=== PATIENT | male | born 1965 | race African-American/Black ===

== ENCOUNTER 2018-06-15 00:33 | Emergency (ER) | payer MEDICAID ==
[~2018-06-15] VITALS: Ht 162.6 cm; Wt 65.1 kg
[2018-06-15] MEDS ORDERED: chlorPROMAZINE 25 MG/ML, 2ML IM ONE (01:00)
[2018-06-15 02:05] VITALS: BP 122/67
== END 2018-06-15 02:06 | disposition home or self-care (01) ==
LOC: ED 01:55
DX: R10.13 Epigastric pain (principal); R06.6 Hiccough; R11.10 Vomiting, unspecified; F17.200 Nicotine dependence, unspecified, uncomplicated
CPT/HCPCS: 74022; 96372; 99283; J3230

== ENCOUNTER 2018-06-19 09:45 | Inpatient (IN) | payer MEDICAID ==
[~2018-06-19] VITALS: Ht 162.6 cm; Wt 65.4 kg
[2018-06-19] MEDS ORDERED: ACETAMINOPHEN 325 MG TABLET PO ONE (10:30)
[2018-06-19] MEDS ORDERED: chlorPROMAZINE 25 MG/ML, 1ML IM ONE (10:30)
[2018-06-19] MEDS ORDERED: SODIUM CHLORIDE FLUSH 10ML SYR IVF ONE (10:30)
[2018-06-19] MEDS ORDERED: CEFTRIAXONE 1,000 MG in SODIUM CHLORIDE 0.9% 50 ML IVPB ONE (10:30)
[2018-06-19] MEDS ORDERED: ACETAMINOPHEN 325 MG TABLET ONE (11:00)
[2018-06-19] MEDS ORDERED: CEFTRIAXONE PMX 1GM/50ML 50 ML ONE (11:00)
[2018-06-19 11:02] LABS: BASOPHILS # (AUTO) 0.02 x10^3/uL (0-0.1); BASOPHILS % (AUTO) 0 % (0-1); EOSINOPHILS % (AUTO) 0 % (1-7); LYMPHOCYTES # (AUTO) 0.67 x10^3/uL (1-3.4); LYMPHOCYTES % (AUTO) 7 % (22-44); MD NO; MEAN CORPUSCULAR HGB CONC 33.4 g/dL (33.2-36.2); MEAN CORPUSCULAR VOLUME 80.6 fL (81-97); MONOCYTES # (AUTO) 0.94 x10^3/uL (0.2-0.8); MONOCYTES % (AUTO) 9 % (2-9); NEUTROPHILS # (AUTO) 8.66 x10^3/uL (1.8-6.8); NEUTROPHILS % (AUTO) 84 % (42-75); PLATELET COUNT 190 x10^3/uL (130-400); RED BLOOD COUNT 5.46 x10^6/uL (4.38-5.82); RED CELL DISTRIBUTION WIDTH 15.1 % (9.4-14.8)
[2018-06-19 11:59] LABS: ALBUMIN 3.4 g/dL (3.4-5.0); ANION GAP 9 mmol/L (5-15); CALCIUM 8.6 mg/dL (8.5-10.1); CHLORIDE 90 mmol/L (98-107)
[2018-06-19 12:03] LABS: ALANINE AMINOTRANSFERASE 20 U/L (12-78); ALKALINE PHOSPHATASE 81 U/L (45-117); BILIRUBIN,TOTAL 0.3 mg/dL (0.2-1.0); TOTAL PROTEIN 8.2 g/dL (6.4-8.2)
[2018-06-19] MEDS ORDERED: METOPROLOL TARTRATE 50 MG TABLET PO ONE (12:30)
[2018-06-19 13:49] VITALS: BP 111/70
[2018-06-19 14:00] VITALS: BP 111/70
[2018-06-19] MEDS ORDERED: LABETALOL 5MG/ML, 20ML IVPush PRN (15:00)
[2018-06-19] MEDS ORDERED: BISACODYL 10 MG SUPP PR PRN (15:00)
[2018-06-19] MEDS ORDERED: ONDANSETRON 2MG/ML, 2ML IVPush PRN (15:00)
[2018-06-19] MEDS ORDERED: DOCUSATE 100 MG CAPSULE PO PRN (15:00)
[2018-06-19] MEDS ORDERED: ONDANSETRON ODT 4 MG PO PRN (15:00)
[2018-06-19] MEDS ORDERED: POLYETHYLENE GLYCOL 17 GM PACKET PO PRN (15:00)
[2018-06-19] MEDS ORDERED: hydrALAzine 20 MG/ML, 1ML IVPush PRN (15:00)
[2018-06-19] MEDS: NS + 40MEQ KCL 1,000 ML IV SCH (15:35)
[2018-06-19] MEDS: NICOTINE 14MG/24 HR PATCH.TD24 TD SCH (15:36)
[2018-06-19 15:45] LABS: MICROSCOPIC AUTO
[2018-06-19 15:50] LABS: CULTURE INDICATED? NO
[2018-06-19] MEDS ORDERED: BACLOFEN 10 MG TABLET PO PRN (17:00)
[2018-06-19] MEDS: PIPERACILLIN/TAZO/PMX 3.375GM 50 ML IV SCH ×2 (17:16→23:19)
[2018-06-19] MEDS ORDERED: OMNIPAQUE 350 MG/ML, 100ML BOTTLE ONE (17:40)
[2018-06-19 18:42] LABS: CLOSTRIDIUM DIFFICILE ANTIGEN NEGATIVE; CLOSTRIDIUM DIFFICILE TOXIN NEGATIVE (Negative)
[2018-06-19 19:04] VITALS: BP 132/91
[2018-06-19] MEDS: ACETAMINOPHEN 325 MG TABLET PO PRN (19:24)
[2018-06-19] MEDS ORDERED: VANCOMYCIN PER PHARMACY MC PRN (19:30)
[2018-06-19] MEDS ORDERED: PHARMACOKINETIC CONSULTATION MC ONE (20:30)
[2018-06-19] MEDS ORDERED: PHARMACOKINETIC MONITORING MC PRN (20:30)
[2018-06-19] MEDS: VANCOMYCIN 1,200 MG in SODIUM CHLORIDE 0.9% 250 ML IV SCH (20:58)
[2018-06-20] MEDS: NS + 40MEQ KCL 1,000 ML IV SCH ×2 (00:55→12:51)
[2018-06-20 02:33] VITALS: BP 104/64
[2018-06-20] MEDS: ACETAMINOPHEN 325 MG TABLET PO PRN (02:35)
[2018-06-20] MEDS: PIPERACILLIN/TAZO/PMX 3.375GM 50 ML IV SCH ×4 (05:06→23:10)
[2018-06-20 06:03] LABS: BASOPHILS # (AUTO) 0.02 x10^3/uL (0-0.1); BASOPHILS % (AUTO) 0 % (0-1); EOSINOPHILS # (AUTO) 0.01 x10^3/uL (0-0.4); EOSINOPHILS % (AUTO) 0 % (1-7); LYMPHOCYTES # (AUTO) 1.01 x10^3/uL (1-3.4); LYMPHOCYTES % (AUTO) 10 % (22-44); MD NO; MEAN CORPUSCULAR HEMOGLOBIN 26.9 pg (27.5-34.5); MEAN CORPUSCULAR HGB CONC 32.6 g/dL (33.2-36.2); MEAN CORPUSCULAR VOLUME 82.7 fL (81-97); MEAN PLATELET VOLUME 9.8 fL (7.4-10.4); MONOCYTES # (AUTO) 1.32 x10^3/uL (0.2-0.8); MONOCYTES % (AUTO) 13 % (2-9); NEUTROPHILS % (AUTO) 77 % (42-75); PLATELET COUNT 173 x10^3/uL (130-400); RED BLOOD COUNT 5.12 x10^6/uL (4.38-5.82); RED CELL DISTRIBUTION WIDTH 15.4 % (9.4-14.8)
[2018-06-20 06:14] LABS: ANION GAP 8 mmol/L (5-15); CALCIUM 8.2 mg/dL (8.5-10.1); CHLORIDE 103 mmol/L (98-107); CREATININE 1.19 mg/dL (0.7-1.3)
[2018-06-20 07:40] VITALS: BP 98/62
[2018-06-20] MEDS: SENNA/DOCUSATE TABLET PO SCH (09:00)
[2018-06-20] MEDS ORDERED: FENTANYL PF 100 MCG/2ML ONE (11:19)
[2018-06-20] MEDS ORDERED: LIDOCAINE-MPF 1%, 5ML ONE (11:31)
[2018-06-20 13:17] VITALS: BP 104/71
[2018-06-20 14:15] LABS: RAPID INFLUENZA A Negative (Negative); RAPID INFLUENZA B Negative (Negative)
[2018-06-20] MEDS: VANCOMYCIN 1,200 MG in SODIUM CHLORIDE 0.9% 250 ML IV SCH (14:37)
[2018-06-20] MEDS: NICOTINE 14MG/24 HR PATCH.TD24 TD SCH (15:00)
[2018-06-20 19:33] VITALS: BP 115/77
[2018-06-21] MEDS: ACETAMINOPHEN 325 MG TABLET PO PRN (01:02)
[2018-06-21 01:10] VITALS: BP 113/78
[2018-06-21] MEDS: DIPHENHYDRAMINE 25 MG CAPSULE PO PRN ×2 (01:24→21:29)
[2018-06-21] MEDS: PIPERACILLIN/TAZO/PMX 3.375GM 50 ML IV SCH (06:13)
[2018-06-21 07:55] VITALS: BP 93/60
[2018-06-21] MEDS: SENNA/DOCUSATE TABLET PO SCH (09:00)
[2018-06-21 09:40] LABS: ANION GAP 7 mmol/L (5-15); CALCIUM 8.4 mg/dL (8.5-10.1); CHLORIDE 107 mmol/L (98-107); CREATININE 1.08 mg/dL (0.7-1.3)
[2018-06-21 09:52] LABS: MEAN CORPUSCULAR HEMOGLOBIN 26.4 pg (27.5-34.5); MEAN CORPUSCULAR HGB CONC 32.1 g/dL (33.2-36.2); MEAN CORPUSCULAR VOLUME 82.2 fL (81-97); PLATELET COUNT 200 x10^3/uL (130-400); RED BLOOD COUNT 5.05 x10^6/uL (4.38-5.82)
[2018-06-21 10:15] LABS: BASOPHILS # (AUTO) 0.01 x10^3/uL (0-0.1); BASOPHILS % (AUTO) 0 % (0-1); EOSINOPHILS # (AUTO) 0.05 x10^3/uL (0-0.4); EOSINOPHILS % (AUTO) 1 % (1-7); LYMPHOCYTES # (AUTO) 1.44 x10^3/uL (1-3.4); LYMPHOCYTES % (AUTO) 24 % (22-44); MD SCAN; MONOCYTES # (AUTO) 0.69 x10^3/uL (0.2-0.8); MONOCYTES % (AUTO) 11 % (2-9); NEUTROPHILS # (AUTO) 3.95 x10^3/uL (1.8-6.8); NEUTROPHILS % (AUTO) 64 % (42-75)
[2018-06-21 12:12] VITALS: BP 121/79
[2018-06-21] MEDS: NICOTINE 14MG/24 HR PATCH.TD24 TD SCH (15:00)
[2018-06-21] MEDS ORDERED: VANCOMYCIN PER PHARMACY MC PRN (19:00)
[2018-06-21 19:17] VITALS: BP 125/84
[2018-06-21] MEDS: PIPERACILLIN/TAZO/PMX 4.5GM 100 ML IV SCH (19:27)
[2018-06-21] MEDS ORDERED: PHARMACOKINETIC MONITORING MC PRN (19:30)
[2018-06-21] MEDS ORDERED: PHARMACOKINETIC CONSULTATION MC ONE (19:30)
[2018-06-21] MEDS: VANCOMYCIN 1,200 MG in SODIUM CHLORIDE 0.9% 250 ML IV SCH (21:28)
[2018-06-22] MEDS: PIPERACILLIN/TAZO/PMX 4.5GM 100 ML IV SCH ×4 (01:57→20:23)
[2018-06-22 02:05] VITALS: BP 119/81
[2018-06-22 07:39] VITALS: BP 123/78
[2018-06-22] MEDS: SENNA/DOCUSATE TABLET PO SCH (08:32)
[2018-06-22 14:37] VITALS: BP 122/82
[2018-06-22] MEDS: NICOTINE 14MG/24 HR PATCH.TD24 TD SCH (15:00)
[2018-06-22] MEDS: VANCOMYCIN 1,200 MG in SODIUM CHLORIDE 0.9% 250 ML IV SCH (15:26)
[2018-06-22] MEDS ORDERED: SODIUM CHLORIDE NASAL SPRAY 45ML BOTTLE NAS PRN (16:00)
[2018-06-22 20:26] VITALS: BP 129/86
[2018-06-22] MEDS: DIPHENHYDRAMINE 25 MG CAPSULE PO PRN (21:59)
[2018-06-23 00:12] VITALS: BP 96/62
[2018-06-23 00:30] VITALS: BP 120/80
[2018-06-23] MEDS: PIPERACILLIN/TAZO/PMX 4.5GM 100 ML IV SCH ×2 (02:15→10:12)
[2018-06-23 05:21] LABS: ANION GAP 8 mmol/L (5-15); CALCIUM 8.5 mg/dL (8.5-10.1); CHLORIDE 105 mmol/L (98-107)
[2018-06-23 05:22] LABS: CREATININE 1.16 mg/dL (0.7-1.3)
[2018-06-23 05:29] LABS: BASOPHILS # (AUTO) 0.04 x10^3/uL (0-0.1); BASOPHILS % (AUTO) 1 % (0-1); EOSINOPHILS # (AUTO) 0.14 x10^3/uL (0-0.4); EOSINOPHILS % (AUTO) 3 % (1-7); LYMPHOCYTES # (AUTO) 1.68 x10^3/uL (1-3.4); LYMPHOCYTES % (AUTO) 35 % (22-44); MD NO; MEAN CORPUSCULAR HGB CONC 32.8 g/dL (33.2-36.2); MEAN CORPUSCULAR VOLUME 82.1 fL (81-97); MEAN PLATELET VOLUME 9.3 fL (7.4-10.4); MONOCYTES # (AUTO) 0.84 x10^3/uL (0.2-0.8); MONOCYTES % (AUTO) 17 % (2-9); NEUTROPHILS # (AUTO) 2.13 x10^3/uL (1.8-6.8); NEUTROPHILS % (AUTO) 44 % (42-75); PLATELET COUNT 225 x10^3/uL (130-400); RED CELL DISTRIBUTION WIDTH 15.5 % (9.4-14.8)
[2018-06-23] MEDS: VANCOMYCIN 1,200 MG in SODIUM CHLORIDE 0.9% 250 ML IV SCH (07:38)
[2018-06-23 07:47] VITALS: BP 123/78
[2018-06-23] MEDS: SENNA/DOCUSATE TABLET PO SCH (09:00)
[2018-06-23] MEDS ORDERED: LEVO750T26 PO (11:15)
[2018-06-23] MEDS ORDERED: [UNRECOGNIZED DRUG - CODE] PO (11:19)
[2018-06-23] MEDS ORDERED: FLU VAC QS18-19(4YR UP)CEL/PF 0.5ML IM-VACC ONE (13:00)
== END 2018-06-23 14:00 | disposition home or self-care (01) | DRG 194 ==
LOC: ED 10:20 → EDIP 12:22 → 3NE 13:00 → DCLOUNGE 06-23 13:55
PROVIDERS: ADMIT Hospitalist; ATTEND Hospitalist
PROC: 0W9J3ZZ Drainage of Pelvic Cavity, Percutaneous Approach (ICD-10-PCS; principal; 2018-06-20)
DX: J18.9 Pneumonia, unspecified organism (principal); E44.0 Moderate protein-calorie malnutrition; E87.1 Hypo-osmolality and hyponatremia; E87.6 Hypokalemia; F17.210 Nicotine dependence, cigarettes, uncomplicated; R00.0 Tachycardia, unspecified; Y95 Nosocomial condition; Z59.0 Homelessness; Z68.24 Body mass index [BMI] 24.0-24.9, adult; Z90.49 Acquired absence of other specified parts of digestive tract; Z79.899 Other long term (current) drug therapy
CPT/HCPCS: 10030; 36415; 71045; 74177; 75989; 80048; 80053; 81001; 83605; 83735; 84100; 84145; 85025; 87040; 87070; 87075; 87205; 87324; 87400; 90674; G0378; J0696; J2543; J3010; J3230; J3370; Q9967; J3480; J7050; Q0163

== ENCOUNTER 2019-01-11 22:28 | Emergency (ER) | payer MEDICAID ==
[~2019-01-11] VITALS: Ht 162.6 cm; Wt 58.5 kg
[~2019-01-11 22:28] MED LIST: LEVO750T26 PO; [UNRECOGNIZED DRUG - CODE] PO
--- NOTE | 2019-01-11 22:44 | NUR ---
PT STATES HE HAS BEEN HAVING HICCUPS SINCE MAY. PT STATES " I CAN'T GET THEM TO GO AWAY SINCE MY HERNIA REPAIR". PT SITTING UP ON GURNEY, PROVIDED PT WITH WARM BLANKET, MONITORS APPLIED, SIDERAILS UP X2, CALL LIGHT WITHIN REACH
[2019-01-11] MEDS ORDERED: DIAZEPAM 5 MG TABLET ONE (22:52)
[2019-01-11] MEDS ORDERED: DIAZEPAM 5 MG TABLET PO ONE (23:00)
[2019-01-11] MEDS ORDERED: chlorPROMAZINE 25 MG/ML, 2ML IM ONE (23:00)
--- NOTE | 2019-01-11 23:08 | NUR ---
pt medicated per mar
[2019-01-11 23:32] VITALS: BP 116/72
--- NOTE | 2019-01-11 23:32 | NUR ---
pt resting with eyes closed, snoring, nadn, equal chest rise /fall observed, monitors in place, call light within reach. chart up for recheck
== END 2019-01-12 00:24 | disposition home or self-care (01) ==
LOC: ED 01-12 00:17
DX: R06.6 Hiccough (principal); R05 Cough
CPT/HCPCS: 71046; 96372; 99283; J3230

== ENCOUNTER 2019-07-07 09:41 | Emergency (ER) | payer MEDICAID ==
[~2019-07-07] VITALS: Ht 162.6 cm; Wt 67.3 kg
[2019-07-07 10:40] LABS: BASOPHILS # (AUTO) 0.02 x10^3/uL (0-0.1); BASOPHILS % (AUTO) 0 % (0-1); EOSINOPHILS # (AUTO) 0.11 x10^3/uL (0-0.4); EOSINOPHILS % (AUTO) 1 % (1-7); LYMPHOCYTES # (AUTO) 1.09 x10^3/uL (1-3.4); LYMPHOCYTES % (AUTO) 9 % (22-44); MD NO; MEAN CORPUSCULAR HEMOGLOBIN 27.3 pg (27.5-34.5); MEAN CORPUSCULAR HGB CONC 31.8 g/dL (33.2-36.2); MEAN CORPUSCULAR VOLUME 85.7 fL (81-97); MEAN PLATELET VOLUME 8.4 fL (7.4-10.4); MONOCYTES # (AUTO) 0.73 x10^3/uL (0.2-0.8); MONOCYTES % (AUTO) 6 % (2-9); NEUTROPHILS # (AUTO) 10.81 x10^3/uL (1.8-6.8); NEUTROPHILS % (AUTO) 85 % (42-75); PLATELET COUNT 274 x10^3/uL (130-400)
[2019-07-07 10:52] LABS: ALANINE AMINOTRANSFERASE 40 U/L (12-78); ANION GAP 6 mmol/L (5-15); CALCIUM 8.2 mg/dL (8.5-10.1); CHLORIDE 108 mmol/L (98-107)
[2019-07-07 10:53] LABS: ALKALINE PHOSPHATASE 107 U/L (45-117); BILIRUBIN,TOTAL 0.3 mg/dL (0.2-1.0); TOTAL PROTEIN 6.8 g/dL (6.4-8.2)
--- NOTE | 2019-07-07 12:48 | NUR ---
[employer] CE[employer]ER: PT TO ROOM FROM [facility]
--- NOTE | 2019-07-07 13:15 | NUR ---
PT TO ED FOR HICCUPS X1 YEAR. PT CONNECTED TO MONITORS. VSS. DR PINTO TO BS FOR ASSESSMENT. PIT ORDERS COMPLETE. AWAITING FURTHER ORDERS.
[2019-07-07] MEDS ORDERED: RISPERDAL (13:17)
[2019-07-07] MEDS ORDERED: OMEPRAZOLE (13:17)
[2019-07-07] MEDS ORDERED: TRAZODONE (13:17)
[2019-07-07] MEDS ORDERED: MAALOX/HYOSCYAMINE/LIDOCAINE 45 ML BTL ONE (14:06)
--- NOTE | 2019-07-07 14:16 | NUR ---
1/2 PACKET SUGAR GIVEN TO PT WITH INSTRUCTIONS PER DR. PINTO TO LET IT MELT ON BACK OF TONGUE.
[2019-07-07 14:18] VITALS: BP 153/93
--- NOTE | 2019-07-07 14:20 | NUR ---
VSS. NO NEEDS EXPRESSED. CALL LIGHT WITHIN REACH. SUGAR NOT EFFETIVE THUS FAR. IF HICCUPS CONTINUE, WILL ADMIN GI COCKTAIL PER DR. PINTO'S INSTRUCTIONS.
--- NOTE | 2019-07-07 14:29 | NUR ---
sugar ineffective. gi cocktail administered.
[2019-07-07] MEDS ORDERED: MAALOX/HYOSCYAMINE/LIDOCAINE 45 ML BTL PO ONE (14:30)
--- NOTE | 2019-07-07 15:12 | NUR ---
Despite continued hiccuping provider to discharge as availabel pharmological treatment contradicted with currect medical status. Patient agreeable to be discharged home with gastritis medication and return if symptoms don't slowly improve
== END 2019-07-07 15:26 | disposition home or self-care (01) ==
LOC: ED 15:20
DX: K21.0 Gastro-esophageal reflux disease with esophagitis (principal); R06.6 Hiccough; F17.200 Nicotine dependence, unspecified, uncomplicated
CPT/HCPCS: 36415; 71045; 80053; 83690; 85025; 93005; 99284